=== PATIENT | male | born 1975 | race Caucasian/White ===

== ENCOUNTER 2018-04-14 13:09 | Emergency (ER) | payer BC, SELFPAY ==
[2018-04-14 13:13] VITALS: BP 136/66; PULSE 89; RESP 16; TEMP 36.7; O2SAT 96
--- NOTE | 2018-04-14 13:25 | W.ED.GENAD ---
Discharge Plan Disposition Patient Disposition: HOME Condition: Stable Discharge Details Chief Complaint: Anxiety Clinical Impression: Depression Primary Care Provider: Maria Ines Forman ED Provider: Jesse King Discharge Instructions Instructions: Depression (ED) Additional Instructions: Return at any time for reevaluation. Mental health services will continue to be in touch with you. You have made a plan for safety as an outpatient. If you feel you have thoughts of harming herself or others please return or contact mental health services. Medical Decision Making 43-year-old male presents from home with his father. He lives alone in [place]. He states that he has had increased depression over weeks time primarily due to what he feels like his social stressors due to his previous relationships and relationship with family. He denies to me thoughts of harming himself or plans of suicide. He has no thoughts of harming others. He states that he was admitted to [facility] for similar symptoms 3 years ago and had some improvement. He is no longer currently taking any medications. Screening medical exam performed, laboratory analysis. Patient stable for evaluation by mental health. They have made a referral for acute inpatient admission for depression which will be pending and the patient has made a plan for safety to be discharged home with his father. Lab Data Lab results reviewed: Yes I reviewed the patient's lab results. Laboratory Results - last 24 hr 04/14/18 04/14/18 04/14/18 13:35 13:35 13:35 WBC 12.93 H RBC 5.51 Hgb 16.5 Hct 48.2 MCV 87.5 MCH 29.9 MCHC 34.2 RDW 13.7 Plt Count 252 MPV 9.4 Immature Gran % 0.4 Neutrophils % 73.2 Lymphocytes % 19.5 Monocytes % 5.9 Eosinophils % 0.5 Basophils % 0.5 Absolute Neutrophils 9.46 H Absolute Lymphocytes 2.52 Absolute Monocytes 0.76 H Absolute Eosinophils 0.06 Absolute Basophils 0.06 Sodium 141 Potassium 4.1 Chloride 105 Carbon Dioxide 25.8 Anion Gap 10.2 BUN 16 Creatinine 0.86 Estimated GFR/1.73 m2 >= 60.00 Glucose 109 H Calcium 9.0 Total Bilirubin 0.3 AST 17 ALT 14 Alkaline Phosphatase 63 Total Protein 7.6 Albumin 3.9 TSH 1.27 Salicylates 4.9 Urine Opiates Screen Urine Methadone Screen Acetaminophen < 2 L Ur Barbiturates Screen Ur Tricyclics Screen Ur Amphetamines Screen U Benzodiazepines Scrn Urine Cocaine Screen Ur THC Screen Ethyl Alcohol < 3.0 04/14/18 13:40 WBC RBC Hgb Hct MCV MCH MCHC RDW Plt Count MPV Immature Gran % Neutrophils % Lymphocytes % Monocytes % Eosinophils % Basophils % Absolute Neutrophils Absolute Lymphocytes Absolute Monocytes Absolute Eosinophils Absolute Basophils Sodium Potassium Chloride Carbon Dioxide Anion Gap BUN Creatinine Estimated GFR/1.73 m2 Glucose Calcium Total Bilirubin AST ALT Alkaline Phosphatase Total Protein Albumin TSH Salicylates Urine Opiates Screen Negative Urine Methadone Screen Negative Acetaminophen Ur Barbiturates Screen Negative Ur Tricyclics Screen Negative Ur Amphetamines Screen Negative U Benzodiazepines Scrn Negative Urine Cocaine Screen Negative Ur THC Screen Negative Ethyl Alcohol HPI General Mode of arrival: ambulatory. Date/Time Provider Initiated Documentation: 04/14/18 13:19. Limitations to Documentation: no limitations. Information obtained by: patient and family. History of Present Illness 43 year old M presents to the emergency department with the chief complaint of 43-year-old male presents from home with father with increased depression, described as mild and moderate, Quality is described as constant, Patient started experiencing this week(s) and it has been constant. No relieving factors improve symptom(s), No exacerbating factors reported . Patient notes no other symptoms.. Patient did receive the following treatments prior to arrival, none Related Data Allergies Allergy/AdvReac Type Severity Reaction Status Date / Time No Known Allergies Allergy Unverified 04/14/18 13:17 General Stated Complaint: PsychEval MANJINDER: 3 Review of Systems Review of Systems 6 systems reviewed and otherwise negative [facility] Medical History Chronic back pain Depression Family History Mother No problems noted. Father Depression Sister Essential hypertension Social History Smoking and Tabacco status: Current every day Exam Narrative Exam Narrative: GEN: awake, alert, oriented 3. Pleasant, well groomed, interactive. HEAD: Normocephalic, atraumatic ENT: Mucous membranes moist, oropharynx unremarkable, External ear exam unremarkable EYES: PERRL, EOMI NECK: Full ROM, no SAVANNAH, no menigismus CHEST/RESP: Nontender, clear to auscultation bilateral, no wheeze/rhonchi/rales CARDIOVASCULAR: RRR, no murmur, rub marlin. 2+ Rad pulse bilateral ABDOMEN: Soft, nontender, no mass. +Bowel sounds EXT: Full ROM, no edema, no rash Neuro: Grossly normal neurologic exam, conversant, interactive. Psych: Speech fluent, thoughts congruent, affect normal Course Vital Signs Temperature 36.7 C 04/14/18 13:13 Pulse 89 04/14/18 13:13 Respiratory Rate 16 04/14/18 13:13 Blood Pressure 136/66 04/14/18 13:13 Pulse Oximetry 96 04/14/18 13:13 Temperature 36.7 C 04/14/18 13:13 Temperature Source Skin 04/14/18 13:13 Pulse 89 04/14/18 13:13 Respiratory Rate 16 04/14/18 13:13 Blood Pressure 136/66 04/14/18 13:13 Pulse Oximetry 96 04/14/18 13:13 Oxygen Delivery Method Room Air 04/14/18 13:13 Oxygen Flow Rate 0 04/14/18 13:13 Pain Level 0 04/14/18 13:13
[2018-04-14 13:51] LABS: Abs Immature Grans 0.05 k/cumm (0.0-0.09); Absolute Basophil Count 0.06 k/cumm (0.0-0.2); Absolute Lymphocyte Count 2.52 k/cumm (1.2-3.4); Absolute Monocyte Count 0.76 k/cumm (0.11-0.7); Basophils % 0.5; Eosinophils % 0.5; HCT 48.2 % (40.0-50.0); HGB 16.5 g/dL (13.5-17.5); Immature Grans % 0.4; Lymphocytes % 19.5; Mean Corp. HGB Concentration 34.2 g/dL (32.0-36.0); Mean Corpuscular Hemoglobin 29.9 pg (27.0-33.0); Mean Corpuscular Volume 87.5 fL (80-95); Mean Platelet Volume 9.4 fL (8.0-11.0); Monocytes % 5.9; Neutrophils % 73.2; Platelet Count 252 x1000/uL (130-400); RBC 5.51 m/cumm (4.50-6.00); RBC Distribution Width 13.7 % (11.8-14.1); White Blood Cell Count 12.93 k/cumm (4.4-10.8)
[2018-04-14 13:53] LABS: Absolute Eosinophil Count 0.06 k/cumm (0.0-0.7); Absolute Neutrophil Count 9.46 k/cumm (1.2-6.7)
[2018-04-14 14:03] LABS: *AMPHETAMINES SCREEN URINE Negative (Negative); *BARBITURATES SCREEN URINE Negative (Negative); *BENZODIAZEPINES SCREEN URINE Negative (Negative); Cannabinoids THC Negative (Negative); Cocaine Screen,Urine Negative (Negative); METHADONE URINE SCREEN Negative (Negative); OPIATES URINE SCREEN Negative (Negative)
[2018-04-14 14:04] LABS: Tricyclic Antidepressants Negative (Negative)
[2018-04-14 14:05] LABS: ALT 14 U/L (12-78); AST 17 U/L (15-37); Albumin 3.9 g/dL (3.4-5.0); Alkaline Phosphatase 63 U/L (46-116); Anion Gap 10.2 mmol/L (3-11); BUN 16 mg/dL (7-18); Bilirubin, Total 0.3 mg/dL (0.2-1.0); CO2 25.8 mmol/L (21.0-32.0); CREATININE 0.86 mg/dL (0.70-1.30); Chloride 105 mmol/L (98-107); Glucose 109 mg/dL (70-100); Potassium 4.1 mmol/L (3.5-5.1); Sodium 141 mmol/L (136-145); TSH 1.27 uIU/mL (0.358-3.74); Total Protein 7.6 g/dL (6.4-8.2)
[2018-04-14 14:18] LABS: ETHANOL BLOOD < 3.0 mg/dL (<3)
[2018-04-14 14:27] LABS: Salicylate 4.9 mg/dL (2.8-20.0)
[2018-04-14 14:31] LABS: Acetaminophen < 2 ug/mL (10-30)
--- NOTE | 2018-04-14 16:40 | PDOC.MHCN ---
Date of service: 04/14/18 Time of Service: 16:42 Mental Health Crisis Note Presenting Issue How did you arrive at the ED and why did you come: Patient's father drives him to the ER due to increased anxiety and depression symptoms. Precipitating Factors Patient denies suicidal or homicidal ideation, intent or plan. He talks about a number of stressors in his life and states that he needs intensive therapy. He discusses in great detail events that happened several years ago and shares that these have been weighing heavily on his mind. He was hospitalized at the [facility] approximately 3 years ago and he found that hospitalization very helpful. He expresses a desire to return to the [facility]. He, however, is unwilling to remain at [facility] while he waits for a psych placement. He additionally shares that he has stopped taking the Abilify that he was started on while at the [facility] because he does not trust medications. Disposition BEHAVIOR: Cooperative. EYE CONTACT: Good. MOOD: Depressed. AFFECT: Anxious. APPETITE: Reported as good. SLEEP(trouble falling/staying asleep: Reports no problems with sleep when he works during the day. He has not been working over the past couple of weeks and has been taking Tylenol PM to help with sleep. Plan Patient is returning home. He will call [facility] emergency services in the morning to find out whether or not there are any available psych beds anywhere. He understands that if there are available beds he will need to return to the hospital and repeat the process, e.g. reassessment, blood work, etc., before he can be admitted to a psych placement. Signature Clinician's Name/Title: Shelia Romero BA, [facility] Internet Sales Director
--- NOTE | 2018-04-14 16:54 | PDOC.MHCN_ITS ---
Date of service: 04/14/18 Time of Service: 16:42 Mental Health Crisis Note Presenting Issue How did you arrive at the ED and why did you come: Patient's father drives him to the ER due to increased anxiety and depression symptoms. Precipitating Factors Patient denies suicidal or homicidal ideation, intent or plan. He talks about a number of stressors in his life and states that he needs intensive therapy. He discusses in great detail events that happened several years ago and shares that these have been weighing heavily on his mind. He was hospitalized at the [facility] approximately 3 years ago and he found that hospitalization very helpful. He expresses a desire to return to the [facility]. He, however, is unwilling to remain at [facility] while he waits for a psych placement. He additionally shares that he has stopped taking the Abilify that he was started on while at the [facility] because he does not trust medications. Disposition BEHAVIOR: Cooperative. EYE CONTACT: Good. MOOD: Depressed. AFFECT: Anxious. APPETITE: Reported as good. SLEEP(trouble falling/staying asleep: Reports no problems with sleep when he works during the day. He has not been working over the past couple of weeks and has been taking Tylenol PM to help with sleep. Plan Patient is returning home. He will call [facility] emergency services in the morning to find out whether or not there are any available psych beds anywhere. He understands that if there are available beds he will need to return to the hospital and repeat the process, e.g. reassessment, blood work, etc., before he can be admitted to a psych placement. Signature Clinician's Name/Title: Shelia Romero BA, [facility] Spinner Operator
== END 2018-04-14 16:30 | disposition home or self-care (01) ==
PROVIDERS: Emergency Provider Emergency Medicine; PCP Nurse Practitioner Family
DX: F41.8 Other specified anxiety disorders (principal)
CPT/HCPCS: 36415; 80053; 80307; 99283; 80320; 80329; 84443; 85025

== ENCOUNTER 2018-04-16 12:23 | Emergency (ER) | payer BC, SELFPAY ==
[2018-04-16 12:31] VITALS: BP 143/62; PULSE 87; RESP 18; TEMP 36.5; O2SAT 99
--- NOTE | 2018-04-16 12:56 | PDOC.MHCN ---
Date of service: 04/16/18 Time of Service: 12:56 Mental Health Crisis Note Presenting Issue How did you arrive at the ED and why did you come: Abdelrahman returned to the emergency room following a follow-up phone call he made to this clinician if his symptoms of depression increase after his last admit for a depression screening on 04-14-18. Precipitating Factors Abdelrahman has been screened by mental health twice during the last two weeks. Once in the community and once at [facility]. He reports that he has not been sleeping well due to elevated thought process. Furthermore, he reports he had suicidal ideation over the last two days that seems to come and go. He does not report a history of attempts, but reports he has begun to think of ways he can commit suicide, but has not seriously considered a plan. He reports some fear of how his symptoms of depression have progressed to paranoia in the past. He does report a history of being treated for major depressive disorder with psychotic features. He only reports depression right now and does not identify auditory or visual hallucinations. He reports he may be getting some paranoia in his thinking. He also reports he is afraid of the suicidal thoughts. From this, he seems to be beginning to be unsure of his ability to make good choices and expresses concerns of drinking or paranoia that have co-occurred with past depressed episodes he reports. Disposition BEHAVIOR: melancholic, lethargic, slowed rate, pitch and tone of speech EYE CONTACT: fair MOOD: depressed AFFECT: flat APPETITE: good SLEEP(trouble falling/staying asleep: difficulty falling asleep Plan He will stay at [facility] while voluntary hospital beds are sought by mental health. Signature Clinician's Name/Title: Micheal Delaney MA [facility] 04-16-18
[2018-04-16 13:06] LABS: Bilirubin Negative (Negative); Blood Negative (Negative); Clarity Clear; Glucose Negative (Negative); Ketones Trace mg/dL (Negative); Leukocyte Esterase Negative (Negative); Nitrite Negative (Negative); Specific Gravity >= 1.030 (1.005-1.025); Urobilinogen 0.2 EU/dL (Up TO 0.2)
--- NOTE | 2018-04-16 13:10 | PDOC.MHCN_ITS ---
Date of service: 04/16/18 Time of Service: 12:56 Mental Health Crisis Note Presenting Issue How did you arrive at the ED and why did you come: Abdelrahman returned to the emergency room following a follow-up phone call he made to this clinician if his symptoms of depression increase after his last admit for a depression screening on 04-14-18. Precipitating Factors Abdelrahman has been screened by mental health twice during the last two weeks. Once in the community and once at [facility]. He reports that he has not been sleeping well due to elevated thought process. Furthermore, he reports he had suicidal ideation over the last two days that seems to come and go. He does not report a history of attempts, but reports he has begun to think of ways he can commit suicide, but has not seriously considered a plan. He reports some fear of how his symptoms of depression have progressed to paranoia in the past. He does report a history of being treated for major depressive disorder with psychotic features. He only reports depression right now and does not identify auditory or visual hallucinations. He reports he may be getting some paranoia in his thinking. He also reports he is afraid of the suicidal thoughts. From this, he seems to be beginning to be unsure of his ability to make good choices and expresses concerns of drinking or paranoia that have co-occurred with past depressed episodes he reports. Disposition BEHAVIOR: melancholic, lethargic, slowed rate, pitch and tone of speech EYE CONTACT: fair MOOD: depressed AFFECT: flat APPETITE: good SLEEP(trouble falling/staying asleep: difficulty falling asleep Plan He will stay at [facility] while voluntary hospital beds are sought by mental health. Signature Clinician's Name/Title: Micheal Delaney MA [facility] 04-16-18
[2018-04-16 13:20] LABS: *AMPHETAMINES SCREEN URINE Negative (Negative); *BARBITURATES SCREEN URINE Negative (Negative); *BENZODIAZEPINES SCREEN URINE Negative (Negative); Cannabinoids THC Negative (Negative); Cocaine Screen,Urine Negative (Negative); METHADONE URINE SCREEN Negative (Negative); OPIATES URINE SCREEN Negative (Negative)
[2018-04-16 13:21] LABS: Tricyclic Antidepressants Negative (Negative)
[2018-04-16 13:30] LABS: Acetaminophen < 2 ug/mL (10-30)
[2018-04-16 13:32] LABS: ALT 12 U/L (12-78); AST 16 U/L (15-37); Albumin 3.7 g/dL (3.4-5.0); Alkaline Phosphatase 65 U/L (46-116); Anion Gap 8.2 mmol/L (3-11); BUN 13 mg/dL (7-18); Bilirubin, Total 0.3 mg/dL (0.2-1.0); CO2 27.8 mmol/L (21.0-32.0); CREATININE 0.88 mg/dL (0.70-1.30); Chloride 106 mmol/L (98-107); Glucose 122 mg/dL (70-100); Potassium 3.9 mmol/L (3.5-5.1); Sodium 142 mmol/L (136-145); TSH (W/Ref FT4) 1.15 uIU/mL (0.358-3.74); Total Protein 7.4 g/dL (6.4-8.2)
--- NOTE | 2018-04-16 13:40 | ED.GENADUL_ITS ---
Discharge Plan Disposition Patient Disposition: OTHER Condition: Good Discharge Details Chief Complaint: PsychEval Clinical Impression: Suicidal ideation Primary Care Provider: Maria Ines Forman ED Provider: Davian Jimenez Home Meds and New Rx's Prescriptions: No Action No Known Home Meds RF: 0 Medical Decision Making This is a pleasant 43-year-old male who presents for evaluation of depression and suicidal ideations. He wants to end his life by driving a car into traffic or tree. Physical exam is benign, vital signs are stable, laboratory workup shows no significant concerning abnormalities and the patient is medically cleared. No evidence of alcohol intoxication. I do feel that the patient would benefit from admission secondary to his stated complaints and thoughts. We have advised mental health on the case, and they are actively participating in the case. They too agree on recommendation for admission. We will seek that placement 3:04 PM the patient has been medically cleared, the patient has been accepted at the [facility] by Dr. Conteh. Patient will be transferred by [facility] to their facility. I have extensively reviewed the treatment plan with the patient. I have addressed all patient concerns at this time. I have also discussed the plan with the admitting physician and they agree with the current assessment and plan and have agreed to assume responsibility for the patient. All parties demonstrate verbal understanding and agreement with our assessment and plan at this time. HPI General Date/Time Provider Initiated Documentation: 04/16/18 12:24 . HPI Narrative: This is a 43-year-old male with no significant past medical history except for depression in the past who presents today for evaluation of depression. Patient states that due to multiple legal problems, and other issues in life he has been notably sad and depressed as of late, however over the last few days he has been particularly depressed and is had thoughts of harming himself. He would kill himself and end his life by driving his car into a tree or into oncoming traffic. He denies any homicidal ideations, auditory or visual hallucinations, or other changes. He is not currently on any medications. He denies any current attempts on his life at this time. He has no other complaints or modifying factors at this time. He denies any IV or illicit drug use. Related Data Home Medications Medication Instructions Recorded Confirmed Unknown [No Known Home Meds] 04/16/18 04/16/18 Allergies Allergy/AdvReac Type Severity Reaction Status Date / Time No Known Allergies Allergy Unverified 04/16/18 12:41 General Stated Complaint: PsychEval MANJINDER: 2 Review of Systems Review of Systems All systems reviewed & are unremarkable except as noted in HPI and below PFSH Social History Smoking and Tabacco status: Current every day Exam Narrative Exam Narrative: 1.Const: Well-nourished, Well-developed, appearing stated age 2.Eyes: PERRL, no conjunctival injection, and symmetrical lids. 3.ENT: Atraumatic external nose and ears. Moist MM. Neck: Symmetric, trachea midline, No thyromegaly. 4.CVS: +S1/S2, No murmurs or gallops. Peripheral pulses 2+ and equal in all extremities. Brisk capillary refill in all extremities. 5.RESP: Unlabored respiratory effort. Clear to auscultation bilaterally. No wheezes rales or rhonchi 6.GI: Soft, Nontender/Nondistended, No hepatosplenomegaly. No guarding or rebound. 7.MSK: Normocephalic/Atraumatic, Extremities w/o deformity or ttp No cyanosis or clubbing, Normal movement of all extremities 8.Skin: Warm, Dry. No rashes or lesions. 9.Neuro: direct care worker II-XII grossly intact. Sensation grossly intact, no focal neurologic deficits. 10.Psych: (AAO) x3. Tearful and sad Course Vital Signs Temperature 36.5 C 04/16/18 12:31 Pulse 87 04/16/18 12:31 Respiratory Rate 18 04/16/18 12:31 Blood Pressure 143/62 H 04/16/18 12:31 Pulse Oximetry 99 04/16/18 12:31 Temperature 36.5 C 04/16/18 12:31 Temperature Source Temporal Artery Scan 04/16/18 12:31 Pulse 87 04/16/18 12:31 Respiratory Rate 18 04/16/18 12:31 Respiratory Effort Non-Labored 04/16/18 12:36 Blood Pressure 143/62 H 04/16/18 12:31 Blood Pressure Position Sitting 04/16/18 12:31 Pulse Oximetry 99 04/16/18 12:31 Oxygen Delivery Method Room Air 04/16/18 12:31 Oxygen Flow Rate 0 04/16/18 12:31 Pain Level 0 04/16/18 12:31 Lab/Test Results Lab/Test Results: Laboratory Tests Range/Units 04/16/18 04/16/18 04/16/18 12:45 12:45 13:05 Sodium (136-145) mmol/L 142 Potassium (3.5-5.1) mmol/L 3.9 Chloride (98-107) mmol/L 106 Carbon Dioxide (21.0-32.0) mmol/L 27.8 Anion Gap (3-11) mmol/L 8.2 BUN (7-18) mg/dL 13 Creatinine (0.70-1.30) mg/dL 0.88 Estimated GFR/1.73 m2 (mL/min/1.73m2) >= 60.00 Glucose (70-100) mg/dL 122 H Calcium (8.5-10.1) mg/dL 9.0 Total Bilirubin (0.2-1.0) mg/dL 0.3 AST (15-37) U/L 16 ALT (12-78) U/L 12 Alkaline Phosphatase (46-116) U/L 65 Total Protein (6.4-8.2) g/dL 7.4 Albumin (3.4-5.0) g/dL 3.7 TSH (0.358-3.74) uIU/mL 1.15 Urine Color (Yellow) Yellow Urine Clarity Clear Urine pH (5-8) 6.0 Ur Specific [place] (1.005-1.025) >= 1.030 H Urine Protein (Negative) mg/dL Negative Urine Ketones (Negative) mg/dL Trace H Urine Blood (Negative) Negative Urine Nitrite (Negative) Negative Urine Bilirubin (Negative) Negative Urine Urobilinogen (Up TO 0.2) EU/dL 0.2 Ur Leukocyte Esterase (Negative) Negative Urine Glucose (Negative) mg/dL Negative Salicylates (2.8-20.0) mg/dL Urine Opiates Screen (Negative) Negative Urine Methadone Screen (Negative) Negative Acetaminophen (10-30) ug/mL Ur Barbiturates Screen (Negative) Negative Ur Tricyclics Screen (Negative) Negative Ur Amphetamines Screen (Negative) Negative U Benzodiazepines Scrn (Negative) Negative Urine Cocaine Screen (Negative) Negative Ur THC Screen (Negative) Negative Range/Units 04/16/18 04/16/18 13:05 13:06 Sodium (136-145) mmol/L Potassium (3.5-5.1) mmol/L Chloride (98-107) mmol/L Carbon Dioxide (21.0-32.0) mmol/L Anion Gap (3-11) mmol/L BUN (7-18) mg/dL Creatinine (0.70-1.30) mg/dL Estimated GFR/1.73 m2 (mL/min/1.73m2) Glucose (70-100) mg/dL Calcium (8.5-10.1) mg/dL Total Bilirubin (0.2-1.0) mg/dL AST (15-37) U/L ALT (12-78) U/L Alkaline Phosphatase (46-116) U/L Total Protein (6.4-8.2) g/dL Albumin (3.4-5.0) g/dL TSH (0.358-3.74) uIU/mL Urine Color (Yellow) Urine Clarity Urine pH (5-8) Ur Specific [place] (1.005-1.025) Urine Protein (Negative) mg/dL Urine Ketones (Negative) mg/dL Urine Blood (Negative) Urine Nitrite (Negative) Urine Bilirubin (Negative) Urine Urobilinogen (Up TO 0.2) EU/dL Ur Leukocyte Esterase (Negative) Urine Glucose (Negative) mg/dL Salicylates (2.8-20.0) mg/dL 4.0 Urine Opiates Screen (Negative) Cancelled Urine Methadone Screen (Negative) Cancelled Acetaminophen (10-30) ug/mL < 2 L Ur Barbiturates Screen (Negative) Cancelled Ur Tricyclics Screen (Negative) Cancelled Ur Amphetamines Screen (Negative) Cancelled U Benzodiazepines Scrn (Negative) Cancelled Urine Cocaine Screen (Negative) Cancelled Ur THC Screen (Negative) Cancelled
--- NOTE | 2018-04-16 13:54 | PDOC.ERCMPRO ---
Care Management Progress Note 04/16-Abdelrahman is a 43 year old male that presents to the emergency department for suicidal ideation. Abdelrahman's father Naveen is here in the room with him. Abdelrahman gave this CM permission to speak openly with his father present and wants his father present during the conversation. Abdelrahman was seen in the ED on 04/14 for depression and was discharged home with his dad. Per Dr. Jimenez, Abdelrahman is not saying that he is suicidal but states if he was he would run into a tree with his car. Please see provider note. CPSO has been ordered and is outside the room. Abdelrahman is sitting on the bed, he makes good eye contact and easily engages in conversation. Abdelrahman states that he is feeling worse, feels like his depression is getting worse. He currently is not taking any medications. He does have health insurance, [employer]. Abdelrahman states he lives alone in [place] with his pets. Abdelrahman is concerned about money. He has been layed off from [employer] for three weeks and has had no income. 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 His dad Naveen has helped him financially. Abdelrahman states that his sisters are mean to him. He has two sisters that are older than him. Abdelrahman states his sisters are mean to him about his Dad helping him and that he shouldn't allow dad to help. Abdelrahman recently was excluded from his niece's birthday green party and when he talks about this, he tears up and states, that hurt me very much. I love my niece's. Discussed care plan with Abdelrahman and he verbalizes understanding. He was given a bible from the Tumbling And Rolling Supervisor as he likes to read it. Abdelrahman also has two methodist metals with prayers that are important to him and calming but Dr. Jimenez has requested he not have them at this time because of the metal. A photo copy was taken of the metals and prayers and given to Abdelrahman. Abdelrahman has requested his car keys so he can give his dad the house snell. Car keys will be returned to his jacket. Abdelrahman has a car in the parking lot, [employer] for which security has been notified. Security also notified that [facility] will be needed for transport if [email or web address]. [facility] with Micheal from [facility]. Micheal from [facility] has made a referral. Currently working on a prior auth with [facility] for [place]. [facility]. Abdelrahman Willingham Voluntary Admission Care Plan 04/15/18 VOLUNTARY FOR INPATIENT PSYCHIATRIC STABILIZATION. Abdelrahman has been appropriate with staff since his arrival in the emergency department. Huddle Participants: Dr. Jimenez ;Adia, CAPRICE; JEANNIE Galaviz. Safety plan will be established with patient, and care team, to adhere to patient goals, identify restrictions based on behavioral status, address nutrition, and determine allowed personal belongings, tools for hygiene and personal care. Determine level of activity including ambulation, level of supervision, visitors, and determine privileges based on behaviors and level of engagement by patient. SAFETY PLAN: 1. Will remain on suicide precautions in Paper Clothes 2. Will remain in room under direct supervision of one-on-one staff at all times provided by CPSO, EMT, PATTERN WEAVER, SHORE HAND DREDGE OR BARGE parquet floor layer's helper. 3. May have paper cups, plates, finger foods as well as a metal spoon with which to eat meals. [facility] staff will be responsible for accounting of utensils after meals. 4. Follow [facility] Management of the Admitted Behavioral Health Patient policy. 5. Comfort bath system only. 6. No personal belongings in room. Patient may have the bible. 7. Visitors: Laureen Hodge may visit. 8. Phone: Per the discretion of the provider based on behaviors. 9. Supervised bathroom privileges. 10. May have music therapy IPAD and cordless headphones if behavior appropriate. 11. May have crayons, papers, and other activities from the Mental Health activity cart in ED at the discretion of the provider. 12. May have television if available. Due to INVOLUNTARY status, patient will have second certification with Department of Mental Health Psychiatrist within the next twenty four hours. First Certification was signed 04/14 at 1800. Patient is currently voluntarily at [facility] and seeking inpatient admission when a bed becomes available. [facility] Frontline Wool Supplier will continue seeking placement. Please contact the Landscape Artist Principal Java Software Engineer ([phone]) and [facility] Wool Supplier ([phone]) for any needed changes in the Safety Plan.
--- NOTE | 2018-04-16 14:26 | CMPROGNOTE_ITS ---
Care Management Progress Note 04/16-Abdelrahman is a 43 year old male that presents to the emergency department for suicidal ideation. Abdelrahman's father Naveen is here in the room with him. Abdelrahman gave this CM permission to speak openly with his father present and wants his father present during the conversation. Abdelrahman was seen in the ED on 04/14 for depression and was discharged home with his dad. Per Dr. Jimenez, Abdelrahman is not saying that he is suicidal but states if he was he would run into a tree with his car. Please see provider note. CPSO has been ordered and is outside the room. Abdelrahman is sitting on the bed, he makes good eye contact and easily engages in conversation. Abdelrahman states that he is feeling worse, feels like his depression is getting worse. He currently is not taking any medications. He does have health insurance, [employer]. Abdelrahman states he lives alone in [place] with his pets. Abderlahman is concerned about money. He has been layed off from [employer] for three weeks and has had no income. 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 His dad Naveen has helped him financially. Abdelrahman states that his sisters are mean to him. He has two sisters that are older than him. Abdelrahman states his sisters are mean to him about his Dad helping him and that he shouldn't allow dad to help. Abdelrahman recently was excluded from his niece's birthday constitution party and when he talks about this, he tears up and states, that hurt me very much. I love my niece's. Discussed care plan with Abdelrahman and he verbalizes understanding. He was given a bible from the Transaction Coordinator as he likes to read it. Abdelrahman also has two restorationism metals with prayers that are important to him and calming but Dr. Jimenez has requested he not have them at this time because of the metal. A photo copy was taken of the metals and prayers and given to Abdelrahman. Abdelrahman has requested his car keys so he can give his dad the house snell. Car keys will be returned to his jacket. Abdelrahman has a car in the parking lot, [employer] for which security has been notified. Security also notified that [facility] will be needed [facility]. [facility] with Micheal from [facility]. Micheal from [facility] has made a referral. Currently working on a prior auth with [facility] for [place]. [facility]. Abdelrahman Willingham Voluntary Admission Care Plan 04/15/18 VOLUNTARY FOR INPATIENT PSYCHIATRIC STABILIZATION. Abdelrahman has been appropriate with staff since his arrival in the emergency department. Huddle Participants: Dr. Jimenez ;Adia, CAPRICE; JEANNIE Galaviz. Safety plan will be established with patient, and care team, to adhere to patient goals, identify restrictions based on behavioral status, address nutrition, and determine allowed personal belongings, tools for hygiene and personal care. Determine level of activity including ambulation, level of supervision, visitors, and determine privileges based on behaviors and level of engagement by patient. SAFETY PLAN: 1. Will remain on suicide precautions in Paper Clothes 2. Will remain in room under direct supervision of one-on-one staff at all times provided by CPSO, EMT, APPRENTICE FUNERAL DIRECTOR, POLE SANDER OPERATOR peanut separator. 3. May have paper cups, plates, finger foods as well as a metal spoon with which to eat meals. [facility] staff will be responsible for accounting of utensils after meals. 4. Follow [facility] Management of the Admitted Behavioral Health Patient policy. 5. Comfort bath system only. 6. No personal belongings in room. Patient may have the bible. 7. Visitors: Laureen Hodge may visit. 8. Phone: Per the discretion of the provider based on behaviors. 9. Supervised bathroom privileges. 10. May have music therapy IPAD and cordless headphones if behavior appropriate. 11. May have crayons, papers, and other activities from the Mental Health activity cart in ED at the discretion of the provider. 12. May have television if available. Due to INVOLUNTARY status, patient will have second certification with Department of Mental Health Psychiatrist within the next twenty four hours. First Certification was signed 04/14 at 1800. Patient is currently voluntarily at [facility] and seeking inpatient admission when a bed becomes available. [facility] Frontline Technical Intern will continue seeking placement. Please contact the Firer Portable Boiler Stroke Coordinator ([phone]) and [facility] Technical Intern ([phone]) for any needed changes in the Safety Plan.
[2018-04-16 16:55] VITALS: BP 116/61; PULSE 80; RESP 16; TEMP 36.5; O2SAT 97
== END 2018-04-16 16:49 | disposition other institution (70) ==
PROVIDERS: Emergency Provider Student in an Organized Health Care Education/Training Program; PCP Nurse Practitioner Family
DX: F32.9 Major depressive disorder, single episode, unspecified (principal); R45.851 Suicidal ideations
CPT/HCPCS: 36415; 80053; 80307; 99285; 80329; 81003; 84443; 99284

== ENCOUNTER 2018-08-25 07:04 | Outpatient (CLI) | payer BC, SELFPAY ==
[2018-08-25 07:49] LABS: HCT 46.5 % (40.0-50.0); Mean Corp. HGB Concentration 34.4 g/dL (32.0-36.0); Mean Corpuscular Hemoglobin 29.5 pg (27.0-33.0); Mean Corpuscular Volume 85.8 fL (80-95); Mean Platelet Volume 9.4 fL (8.0-11.0); Platelet Count 248 x1000/uL (130-400); RBC 5.42 m/cumm (4.50-6.00); RBC Distribution Width 13.5 % (11.8-14.1)
[2018-08-25 09:12] LABS: Anion Gap 8.3 mmol/L (3-11); BUN 10 mg/dL (7-18); CO2 25.7 mmol/L (21.0-32.0); CREATININE 0.94 mg/dL (0.70-1.30); Calcium 8.9 mg/dL (8.5-10.1); Chloride 107 mmol/L (98-107); Glucose 94 mg/dL (70-100); Potassium 4.5 mmol/L (3.5-5.1); Sodium 141 mmol/L (136-145); Vitamin B12 920 pg/mL (193-986)
[2018-08-26 12:43] LABS: Syphilis Serology (RPR) Negative (Negative)
== END 2018-08-25 07:24 ==
PROVIDERS: PCP Nurse Practitioner Family; Visit Provider Nurse Practitioner Family
DX: R41.3 Other amnesia (principal); Z51.81 Encounter for therapeutic drug level monitoring; Z13.1 Encounter for screening for diabetes mellitus
CPT/HCPCS: 36415; 80048; 85027; 82607; 86592

== ENCOUNTER 2021-12-19 11:26 | Emergency (ER) | payer MEDICAID, SELFPAY ==
[2021-12-19 11:33] VITALS: BP 132/62; PULSE 73; RESP 16; TEMP 36.9; O2SAT 99
--- NOTE | 2021-12-19 11:58 | ED.GENADUL_ITS ---
Discharge Plan Disposition Patient Disposition: [facility] Discharge Details Clinical Impression: Major depression, Depression with suicidal ideation ED Provider: Toni Law Home Meds and New Rx's Prescriptions: No Action buspirone 7.5 mg tablet 7.5 mg PO BID Qty: 60 1RF bupropion HCl [Wellbutrin XL] 150 mg tablet extended release 24 hr 150 mg PO QAM Qty: 45 0RF Discharge Data Discharge Date/Time-TO BE ENTERED AT DEPARTURE: 12/19/21 19:16 Medical Decision Making <Esthela Austin NP - Last Filed: 12/19/21 15:33> 46-year-old male presents to the ER accompanied by significant other with a chief complaint of having a nervous breakdown, increased anxiety and having inc reased paranoid delusions. He has also has having some suicidal thoughts but no plan. He states sometimes I think it might just be better if I was not here if I could just go to sleep and not wake up. His significant other states that he has been having paranoid thoughts and thinks that that the FBI is tapping his phone and he has been seeing drones he does admit to me in the room that he sees them on his phone. States he has not been sleeping, he does take care of his elderly parents with dementia. Patient medically cleared using the smart medical clearance form, orders placed for mental health evaluation and UDS ordered. 0.5 mg lorazepam ordered. 1210: Spoke with Sirisha with [facility] regarding patient case and details, she will have someone come for eval in person or via zoom. Per SI patient thinks the door buttons are bugged, He also recently took parents to [place] because of his paranoid thoughts regarding their care 1245: MH at via zoom for eval. 1310: seeking voluntary placement for inpatient admission, patient calm and cooperative at this time. Patient has been sleeping up to this point, breathing eupneic, care is to be handed off to oncoming provider Robin Law NP pending inpatient mental health voluntary placement. Huddle performed with care management and bathhouse keeper. Medical Records Medical records reviewed: Yes I reviewed the patient's medical records. Lab Data Lab results reviewed: Yes I reviewed the patient's lab results. Labs: Laboratory Tests Range/Units 12/19/21 12:20 Urine Opiates Screen (Negative) Negative Urine Methadone Screen (Negative) Negative Ur Barbiturates Screen (Negative) Negative Ur Tricyclics Screen (Negative) Negative Ur Amphetamines Screen (Negative) Negative U Benzodiazepines Scrn (Negative) Negative Urine Cocaine Screen (Negative) Negative Ur THC Screen (Negative) Positive A <Toni Law NP - Last Filed: 12/20/21 13:32> 46-year-old male presents to the ER accompanied by significant other with a chief complaint of having a nervous breakdown, increased anxiety and having increased paranoid delusions. He has also has having some suicidal thoughts but no plan. He states sometimes I think it might just be better if I was not here if I could just go to sleep and not wake up. His significant other states that he has been having paranoid thoughts and thinks that that the FBI is tapping his phone and he has been seeing drones he does admit to me in the room that he sees them on his phone. States he has not been sleeping, he does take care of his elderly parents with dementia. Patient medically cleared using the smart medical clearance form, orders placed for mental health evaluation and UDS ordered. 0.5 mg lorazepam ordered. 1210: Spoke with Sirisha with [facility] regarding patient case and details, she will have someone come for eval in person or via zoom. Per SI patient thinks the door buttons are bugged, He also recently took parents to [place] because of his paranoid thoughts regarding their care 1245: MH at via zoom for eval. 1310: seeking voluntary placement for inpatient admission, patient calm and cooperative at this time. Patient has been sleeping up to this point, breathing eupneic, care is to be handed off to oncoming provider Robin Law NP pending inpatient mental health voluntary placement. Huddle performed with care management and bathhouse keeper. 1540-patient signed out to me pending voluntary admission. Patient resting in bed at time of signout with no complaints stated. 1730-spoke with Renetta Aviles nurse practitioner at the [facility] who after discussion of patient's presentation and voluntary admission she accepted patient for transfer to their facility. HPI <Esthela Austin NP - Last Filed: 12/19/21 15:33> General Mode of arrival: ambulatory . Date/Time Provider Initiated Documentation: 12/19/21 11:30 . Limitations to Documentation: no limitations . Information obtained by: patient, family, RN notes reviewed and old records reviewed . HPI Narrative: 46-year-old male presents to the ER accompanied by significant other with a chief complaint of having a nervous breakdown, increased anxiety and having increased paranoid delusions. He has also has having some suicidal thoughts but no plan. He states sometimes I think it might just be better if I was not here if I could just go to sleep and not wake up. His significant other states that he has been having paranoid thoughts and thinks that that the FBI is tapping his phone and he has been seeing drones he does admit to me in the room that he sees them on his phone. States he has not been sleeping, he does take care of his elderly parents with dementia. He reports that his stress level is very high at this time. He was seen by his PCP on December 14 and was prescribed Wellbutrin and BuSpar which he states has only he is only taking them a couple of times and does not seem to be helping. He denies any illicit drugs other than marijuana, he denies any alcohol he is a daily smoker. He does not appear to be under the influence of any substances at this time. Related Data Home Medications Medication Instructions Recorded Confirmed bupropion HCl 150 mg 24 hr tablet, 150 mg PO QAM #45 tab-caps 12/14/21 12/19/21 extended release (Wellbutrin XL) buspirone 7.5 mg tablet 7.5 mg PO BID #60 tabs 12/14/21 12/19/21 Previous Rx's Medication Instructions Recorded bupropion HCl 150 mg 24 hr tablet, 150 mg PO QAM #45 tab-caps 12/14/21 extended release (Wellbutrin XL) buspirone 7.5 mg tablet 7.5 mg PO BID #60 tabs 12/14/21 Allergies Allergy/AdvReac Type Severity Reaction Status Date / Time No Known Allergies Allergy Verified 12/19/21 11:45 General Stated Complaint: PsychEval MANJINDER: 2 Review of Systems <Esthela Austin NP - Last Filed: 12/19/21 15:33> All systems reviewed & are unremarkable except as noted in HPI and below Constitutional Constitutional: Denies fever(s) Gastrointestinal Gastrointestinal: Denies diarrhea, Denies nausea and Denies vomiting Neurologic Neurologic: Reports behavioral changes Psychiatric Psychiatric: Reports as per HPI, Reports abnormal sleep pattern, Reports anxiety, Reports behavioral changes, Reports depression, Reports difficulty concentrating, Reports mood swings, Reports paranoia and Reports suicidal ideation PFS <Esthela Austin NP - Last Filed: 12/19/21 15:33> All Active Problems (Updated 12/19/21 @ 15:22 by Esthela Austin NP) Major depression (Chronic) Depression with suicidal ideation (Acute) Mental health disorder (Acute) Anxiety (Chronic) Hearing loss (Chronic) B/L hearing aids Memory difficulty (Chronic) 05/14/2018 MOCA: Hyperlipidemia, unspecified (Chronic) 04/2018 labs (done at [facility]): 10-year ASCVD risk = ~4.2% --> no statin indicated at this time Chronic back pain (Chronic) Tobacco use disorder (Chronic) Alcohol dependence in early full remission (Chronic) Major depressive disorder with psychotic features (Chronic) [facility] hospitalization 04/16-04/27/2018 Medical History History of suicidal ideation (10/17/14) [place] [facility] admission Family History Mother No problems noted. 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 [place] Pets and animals: Yes Pets and animals: cat(s) and dog(s) Current gender identity: male What type of physical activity do you participate in: none and other Details: Active with work Frequency: 5-6 times per week Seatbelt use: sometimes Helmet use: Yes Drive intox or ride w/intox four horse hitch driver: Yes Water heater temp set <120 deg: Yes Working smoke detector in home: Yes Fire extinguisher in home: Yes Carbon monox detector in home: Yes Firearms in home: No Do you feel safe at home: No (overstressed) Do you feel safe in your relationship?: Yes Exam <Esthela Austin NP - Last Filed: 12/19/21 15:33> Narrative Exam Narrative: Constitutional: Alert and oriented x3. Appears stated age. Normal body habitus. Head: Normocephalic, no trauma. Eyes: Pupils PERRL, Red reflex noted, EOM's intact. Eyelids symmetrical without lesions, discharge, or swelling. Chest: RRR, Normal S1, S2, distal pulses intact. Resp: Lungs clear to auscultation bilaterally, no wheezes, rales, or rhonchi. Abdomen: Soft, non-distended, Normoactive bowel sounds all 4 quads. Musculoskeletal: Normal gait, 5/5 strength to all four extremities. Skin: No suspicious rashes or lesions. Capillary refill less than 2 sec. Neurologic: Cranial nerves II-XII intact. Alert and oriented x 3. Motor: No deficits noted. Sensory: Intact bilaterally all 4 extremities. Reflexes: DTR's intact bilaterally.. Hematologic/Lymphatic: No ecchymosis, no lymphadenopathy. Psych Appearance: well kempt Speech and Movement: speech clear Mood: expansive Affect: sad Attitude: cooperative Thought Process: flight of ideas Thought Content: delusions and suicidality Insight: fair Judgment: limited Course <Esthela Austin NP - Last Filed: 12/19/21 15:33> Vital Signs Vital signs: Vital Signs Temperature 36.9 C 12/19/21 11:33 Pulse 73 12/19/21 11:33 Respiratory Rate 16 12/19/21 11:33 Blood Pressure 132/62 12/19/21 11:33 Pulse Oximetry 99 12/19/21 11:33 Temperature 36.9 C 12/19/21 11:33 Temperature Source Temporal Artery Scan 12/19/21 11:33 Pulse 73 12/19/21 11:33 Respiratory Rate 16 12/19/21 11:33 Respiratory Effort Non-Labored 12/19/21 11:41 Blood Pressure 132/62 12/19/21 11:33 Blood Pressure Position Sitting 12/19/21 11:33 Pulse Oximetry 99 12/19/21 11:33 Oxygen Delivery Method Room Air 12/19/21 11:33 Oxygen Flow Rate 0 12/19/21 11:33 Pain Level 0 12/19/21 11:33 Sign Out <Esthela Austin NP - Last Filed: 12/19/21 15:33> Sign Out Data: Sign Out Comment: Hx of major depression with psychotic behaviors. Seeking Voluntary inpatient admission. SO reports having paranoid delusions, insomnia, anxiety and suicidal ideation. Calm and cooperative currently. Given Lorazepam 0.5mg and has been sleeping. Last updated by Esthela Austin NP at 12/19/21 15:19
[2021-12-19] MEDS: LORazepam 0.5 MG TAB PO (12:25)
[2021-12-19 12:41] LABS: *AMPHETAMINES SCREEN URINE Negative (Negative); *BARBITURATES SCREEN URINE Negative (Negative); *BENZODIAZEPINES SCREEN URINE Negative (Negative); Cannabinoids THC Positive (Negative); Cocaine Screen,Urine Negative (Negative); METHADONE URINE SCREEN Negative (Negative); OPIATES URINE SCREEN Negative (Negative); Tricyclic Antidepressants Negative (Negative)
[2021-12-19 13:29] LABS: Source Nasal/Nares
[2021-12-19 14:03] LABS: COVID-19 PCR Negative (Negative)
--- NOTE | 2021-12-19 15:16 | CMSP_ITS ---
- If Service Date Differs Date of service: 12/19/21 Time of Service: 15:16 Care Management Safety Plan Status: Voluntary - Reason for Wait Reason for Wait: Inpatient Admission CHIEF COMPLAINT: Abdelrahman is a 46 year old male with a history of multiple psychiatric admissions and a previous diagnosis of depression with psychotic features. He presents in the ED seeking a voluntary hospitalization due to anxiety, depression, inability to sleep, and paranoid delusions. Abdelrahman was recently started on Wellbutrin XL 150 mg daily and BuSpar 7.5 mg BID by his PCP but he reports the medication is not helping. He was assessed by [facility] and found to meet criteria for a voluntary placement. Abdelrahman will remain at [facility] and will be reassessed daily by [facility] until a psych bed can be secured for him. Referrals have been faxed to [facility], [facility], and [facility] for review. VOLUNTARY FOR INPATIENT PSYCHIATRIC STABILIZATION. Patient is appropriate in all interactions since arriving at [facility]; Pt has demonstrated appropriate coping and communication skills, has articulated his or her needs and concerns and is fully engaged during staff interactions. A safety huddle is done at approximately 15:00 with Esthela, ED provider, Deidre, nursing structural steel shop supervisor, CAPRICE Rush, and JEANNIE Bass, in attendance. Safety plan has been established with patient, and care team, to adhere to patient goals, identify restrictions based on behavioral status, address nutrition, and determine allowed personal belongings, tools for hygiene and personal care. Determine level of activity including ambulation, level of supervision, visitors, and determine privileges based on behaviors and level of engagement by pt. SAFETY PLAN: 1. Will remain on suicide precautions. In Paper Clothes 2. Will remain in room under direct supervision of one-on-one staff at all times provided by [employer], VANDANA, LACTATION NURSE correspondence school instructor. 3. May have paper cups, plates, finger foods as well as a cardboard spoon with which to eat meals. 4. Follow [facility] Management of the Admitted Behavioral Health Patient policy. 5. Shower permitted with escort at RN discretion. 6. No personal belongings-soft items permitted at RN discretion. 7. Visitors: Limited to partner, Kathie Green, at RN discretion. 8. Activities: soft cart items, television and other activities at RN discretion. 9. Bathroom privileges with escort in the ED, available in room without limitation on M/S. 10. Phone: None at this time. 11. Due to VOLUNTARY status, if patient wishes to leave [facility], staff will contact [facility] Crisis Screener ([phone]) and On-Call Hvac Sheet Metal Installer Helper ([phone]) as soon as possible. In the event of elopement, notify [facility] Police ([phone]). Patient is currently voluntarily at [facility] and seeking inpatient admission when a bed becomes available. [facility] Frontline Speech Language Pathologist Prn will continue seeking placement. Please contact the Automotive Parts Counter Assistant Hvac Sheet Metal Installer Helper ([phone]) and [facility] Speech Language Pathologist Prn ([phone]) for any needed changes in the Safety Plan. Safety plan has been provided to interdepartmental care team.
[2021-12-19] MEDS: Nicotine 21 MG/24 HR PATCH TD (17:09)
--- NOTE | 2021-12-19 17:43 | PDOC.MHCN_ITS ---
Date of service: 12/19/21 Time of Service: 13:00 PHQ-9 Over the last 2 weeks, how often have you been bothered by any of the following problems? PHQ-9 Results: Negative (Client could not answer the PHQ-9 due to his racing and tangential thought process and inability to comprehend questions at the time of screening.) Source: Developed by Drs. Jerry Calderón, Peyton Lundberg, Chad Soriano and colleagues, with an educational ramiro from [employer]. Suicide Severity Rate CSSRS Have you wished you were or wished you could go to sleep and not wake up?: Yes Have you actually had any thoughts of killing yourself?: Yes CSSRS2 Have you been thinking about how you might do this?: No Have you started to work out or worked out the details of how to kill yourself? Do you intend to carry out this plan?: No CSSRS3 Have you ever done anything, started to do anything or prepared to do anything to end your life?: Yes CSSRS4 Was this within the past three months?: No Screening Score Total Score: 6 Screening: Positive Mental Health Emergency Note Release HS release signed:: No Reason for Visit Abdelrahman presents to [facility] with severe delusions and paranoia, reporting the FBI is out to get him. In the last 2 weeks has the pt presented for ES prior to today?: Unknown Client Information Client is: New Well Housed: Yes Non Suicidal Self Injury Current: No History: No Safety Risk/Harm to Self or Others Current Ideation to Harm Self or Others: No Risk: Does risk to harm exist?: No Risk: N/A Duty to warn indicated: No Asssessment/Mental Status Appearance: Disheveled Attitude: Guarded Behavior: Repetitive movements Speech: Pressured and Slow Affect: Cogruent with mood Mood: Stressed and Irritable Thought process: Racing, Flight of ideas and Tangential Hallucinations: No evidence Delusions: yes, Persectory/Paranoid and Grandiose Attention: Other (Client is unable to focus on this life insurance underwriter's questions due to his racing and tangential thought process.) Perception: Not impaired Orientation: Fully orientated Memory: Intact Insight: Poor Judgement: Poor Neurovegetative Symptoms Sleep: Decrease ( Client reports waking up every hour and sleeping for a total of about 3-4 hours. ) Appetitie: Disordered (Client reports having no appetite and having to force himself to eat. ) Interests: No change Energy: No change Libido: Not applicable Substance Use: Do you use nicotine?: No Have you used substances in the last 7 days?: No Additional Issues: Assaultive/Threatening Behavior: No Medical Concerns: No Threatening to run away: No Child reported abuse/neglect: No Voluntarily presenting for services: Yes Domestic violence is a concern: No Extreme Psychosis or extreme behavior is present: Yes Impression Abdelrahman presents with racing thoughts and a tangential thought process. Abdelrahman reports he feels his mind is 'unclear'. This would be a correct assumption as Abdelrahman displays difficulty in processing this life insurance underwriter's questions. Abdelrahman went on tangents about being roofied, his evil sister, caring for his parents, and feeling like everyone is out to get him. For the past two years Abdelrahman has experienced an additional stress of caring for his two elderly parents who live with him; who both have dementia.Abdelrahman feels he has been the sole provider for his parents as his siblings do not care. Abdelrahmna is unable to respond to the PHQ-9 screening tools and the CSSRS was asked in a more conversational way then how it should be asked due to his need to understand the questions being asked. Abdelrahman is experiencing sever delusions and paranoia. Abdelrahman reports people are watching him, they are out to get him, and nobody can be trusted. Abdelrahman sternly told this life insurance underwriter he wanted nothing to do with [facility] but he would like to go to inpatient treatment. Abdelrahman is in significant need for stabilization and assistance in working through his racing thoughts and additional stresses at this time.? Plan/Disposition Recommended Disposition: Hospitalization (Referrals were sent at 430pm.) facilities contacted. Plan: Client will wait at [facility] until voluntary placement is found. Person reported agreement to plan: Yes Facilities contacted if Applicable [facility] Not accepted, No bed available [facility] Not accepted, No bed available [facility], No bed available Reports/communication Outcome discussed with: ED/Personnel
--- NOTE | 2021-12-19 18:50 | NUR.NOTE ---
Nursing Note: Sig Other Kathie: [phone]
== END 2021-12-19 19:16 | disposition short-term general hospital (02) ==
PROVIDERS: Registered Nurse Emergency; Emergency Provider Nurse Practitioner Family; PCP Nurse Practitioner Family
DX: F32.9 Major depressive disorder, single episode, unspecified (principal); Z20.822 Contact with and (suspected) exposure to COVID-19
CPT/HCPCS: 80307; 87635; 99285

== ENCOUNTER 2022-01-04 11:46 | Outpatient (CLI) | payer MEDICAID, SELFPAY ==
--- NOTE | 2022-01-04 11:45 | RT.EKG_ITS ---
APPROVED REPORT Exam: Resting ECG Reason for Exam: check QT interval with med monitoring Patient Location: O HR:85 bpm ECG Measurements Heart Rate 85 AXIS TX 147 P 55 QRSd 80 QRS 88 QT 343 T 52 QTc 408 Conclusion Sinus rhythm...normal P axis, V-rate 50- 99 Normal Electrocardiogram
== END 2022-01-04 11:47 | disposition home or self-care (01) ==
LOC: DI.KIM 11:47
PROVIDERS: PCP Nurse Practitioner Family; Visit Provider Nurse Practitioner Family
DX: F41.8 Other specified anxiety disorders (principal); Z79.899 Other long term (current) drug therapy; F32.3 Major depressive disorder, single episode, severe with psychotic features; Z13.6 Encounter for screening for cardiovascular disorders
CPT/HCPCS: 93010